=== PATIENT | female | born 1985 | race African-American/Black ===

== ENCOUNTER 2017-11-01 08:20 | Emergency (ER) | payer OTHER ==
[~2017-11-01] VITALS: Ht 165.1 cm; Wt 102.1 kg
[2017-11-01 12:16] VITALS: BP 97/52
== END 2017-11-01 12:21 | disposition home or self-care (01) ==
LOC: ER 08:20
DX: S16.1XXA Strain of muscle, fascia and tendon at neck level, initial encounter (principal); V43.62XA Car passenger injured in collision with other type car in traffic accident, initial encounter; Y93.89 Activity, other specified; Y99.8 Other external cause status; Y92.410 Unspecified street and highway as the place of occurrence of the external cause
CPT/HCPCS: 70360; 70450